=== PATIENT | male | born 1970 | race Caucasian/White ===

== ENCOUNTER 2023-10-09 10:28 | Emergency (ER) | payer OTHER, SELFPAY ==
[2023-10-09] VITALS (18 sets, daily range): BP systolic 123–139; BP diastolic 80–91; PULSE 31–110; RESP 18; TEMP 36.4; O2SAT 93–100; BMI 31.0
--- NOTE | 2023-10-09 10:55 | XR_ITS ---
Patient: DELIO CHAIREZ Facility:?[facility] Patient ID:?[id number] Site Patient ID:?[id number]. Site :?05/16/1940 Study:?XRay-Chest 2 VIEW-10/09/2023 11:27:30 AM Ordering Physician:?DR. ORTEGA Final Report: INDICATION: : Chest pain TECHNIQUE: PA and lateral 2 view chest COMPARISON: None FINDINGS: Lung volumes are good. No focal or diffuse opacities. No pleural effusion. No pneumothorax. Heart size is normal. IMPRESSION: Normal chest radiographs. Dictated by Alcira Chris MD @ 10/09/2023 11:40:00 AM Signed by:?Alcira Chris MD @10/09/2023 11:40:00 AM (Electronic Signature)
--- NOTE | 2023-10-09 10:58 | ED.CHESTPAIN ---
HPI - Chest Pain General Date Seen: 10/09/23 Chief Complaint: Chest Pain Stated Complaint: Chest pain in middle of night Time Seen by Provider: 10/09/23 10:42 Source: patient Mode of arrival: ambulatory Limitations: no limitations History of Present Illness HPI narrative: Patient is a 53-year-old male with a history of a heart ablation for AFib presenting to the emergency department for 5-8 minutes of chest pain that occurred last night pressure sensation in his chest that radiated to both arms that resolved on its own. Will come up from his sleep. States he had chest pain beforeLast year prior to his ablation but it was never this bad. States he has had previous echo in believes he had a cardiac CT done of his heart prior to the ablation but does not remember a heart catheterization being done. Is not on any medications currently. States his heart rate is usually between 45 and 60. Is not currently having any symptoms. Denies fevers, chills, shortness of breath, weakness, numbness, abdominal pain, diarrhea, constipation, lightheadedness, dizziness. Currently he is asymptomatic Related Data Home Medications Medication Instructions Recorded Confirmed aspirin 81 mg tablet,delayed 81 mg PO DAILY 10/09/23 10/09/23 release (Adult Aspirin Regimen) cholecalciferol (vitamin D3) 50 10/09/23 mcg (2,000 unit) capsule Allergies Allergy/AdvReac Type Severity Reaction Status Date / Time No Known Drug Allergies Allergy Verified 10/09/23 10:45 Review of Systems Status of ROS Reports: 10 or more systems reviewed and unremarkable except as noted in History and below PFS PFS Social History Smoking Status: Never smoker Do you use any of these nicotine containing products: None How often do you have a drink containing alcohol: never How often do you have six or more drinks on one occasion: Never AUDIT-C Alcohol total score: 0 Non-prescribed substance use: denies use Exam Narrative Exam Narrative: Const: Well-nourished, Well-developed, in No distress Eyes: PERRL, no conjunctival injection, and symmetrical lids HENT: Atraumatic external nose and ears. Moist mucous membranes. Neck: Symmetric, trachea midline, No thyromegaly. CVS: RRR, No murmurs or gallops. Peripheral pulses 2+ and equal in all extremities RESP: Unlabored respiratory effort. Clear to auscultation bilaterally. GI: Nontender/Nondistended, No rebound or guarding. MSK:Extremities w/o deformity, Normal Active ROM Skin: Warm, Dry. No rashes or lesions. Neuro: Normal Muscle tone, No focal neurological deficits. Psych: Awake, Alert, & Oriented x3. Appropriate mood and affect. Const Vital Signs, click to edit/add: Vital Signs - 24 hr 10/09/23 10:39 10/09/23 11:15 10/09/23 11:30 Temperature Pulse Rate 40 L 46 L Pulse Rate [Right Pulse Oximeter] 50 L Respiratory Rate 18 Blood Pressure Blood Pressure [Left Upper Arm] 131/91 H Pulse Oximetry 96 93 96 Oxygen Delivery Method Room Air 10/09/23 11:31 10/09/23 11:32 10/09/23 11:45 Temperature Pulse Rate 47 L 47 L 46 L Pulse Rate [Right Pulse Oximeter] Respiratory Rate Blood Pressure 123/81 Blood Pressure [Left Upper Arm] Pulse Oximetry 98 98 96 Oxygen Delivery Method 10/09/23 12:01 10/09/23 12:02 10/09/23 12:15 Temperature Pulse Rate 33 L 39 L 31 L Pulse Rate [Right Pulse Oximeter] Respiratory Rate Blood Pressure 133/80 Blood Pressure [Left Upper Arm] Pulse Oximetry 98 99 98 Oxygen Delivery Method 10/09/23 12:30 10/09/23 12:31 10/09/23 12:32 Temperature Pulse Rate 46 L 46 L 47 L Pulse Rate [Right Pulse Oximeter] Respiratory Rate Blood Pressure 139/83 Blood Pressure [Left Upper Arm] Pulse Oximetry 97 98 98 Oxygen Delivery Method 10/09/23 12:46 10/09/23 13:00 10/09/23 13:01 Temperature Pulse Rate 46 L 47 L 47 L Pulse Rate [Right Pulse Oximeter] Respiratory Rate Blood Pressure 129/86 Blood Pressure [Left Upper Arm] Pulse Oximetry 97 97 97 Oxygen Delivery Method 10/09/23 13:02 10/09/23 13:15 10/09/23 13:15 Temperature 97.5 F L Pulse Rate 110 H 54 L Pulse Rate [Right Pulse Oximeter] Respiratory Rate Blood Pressure Blood Pressure [Left Upper Arm] Pulse Oximetry 97 100 Oxygen Delivery Method 10/09/23 13:30 Temperature Pulse Rate 35 L Pulse Rate [Right Pulse Oximeter] Respiratory Rate Blood Pressure Blood Pressure [Left Upper Arm] Pulse Oximetry 99 Oxygen Delivery Method Course Vital Signs Vital signs: Initial Vital Signs Pulse Rate 50 L 10/09/23 10:39 Pulse Rhythm Regular 10/09/23 10:39 Respiratory Rate 18 10/09/23 10:39 Blood Pressure 131/91 H 10/09/23 10:39 Blood Pressure Mean 104 10/09/23 10:39 Blood Pressure Position Sitting 10/09/23 10:39 Pulse Oximetry 96 10/09/23 10:39 Oxygen Delivery Method Room Air 10/09/23 10:39 Vital Signs Pulse Rate 50 L 10/09/23 10:39 Respiratory Rate 18 10/09/23 10:39 Blood Pressure 131/91 H 10/09/23 10:39 Pulse Oximetry 96 10/09/23 10:39 Oxygen Delivery Method Room Air 10/09/23 10:39 Temperature 97.5 F L 10/09/23 13:15 Pulse Rate 35 L 10/09/23 13:30 Respiratory Rate 18 10/09/23 10:39 Blood Pressure 129/86 10/09/23 13:01 Pulse Oximetry 99 10/09/23 13:30 Oxygen Delivery Method Room Air 10/09/23 10:39 MDM - Chest Pain MDM Narrative Medical decision making narrative: Patient is a 53-year-old male presenting to the emergency department for an episode of chest pain. This occurred last night and has since fully resolved. He has been asymptomatic since then. Ordered EKG, magnesium, BMP, CBC, chest x-ray. PE seems very unlikely at this time as symptoms have fully resolved and his symptoms were midsternal chest pain. Also says cm likely be a pneumonia or pneumothorax but chest x-ray order to review this. Lab work returned showing no concerning abnormalities. EKG and repeat troponin showed no concerning findings. Chest x-ray reviewed myself with the radiologist showed no concerning findings. While he was in the emergency department his heart rate will occasionally drop down in the 30s but he is completely asymptomatic at this time. And it would bounce back up into the 40s And 50s. Considering he was otherwise asymptomatic and would quickly rebound to a normal heart rate for him I do not believe further intervention is necessary at this time. Of the heart monitor he was wearing did have really notes when his heart rate was in the 30s and no signs of a heart block were seen. I did inform him to have close follow-up with his [employer] about the heart rate. His heart score at this time is 2. He will be discharged at this time. Lab Data Labs: Lab Results 10/09/23 10/09/23 10/09/23 Range/Units 11:02 11:08 13:03 WBC 7.09 (4.50-11.00) K/uL RBC 4.98 (4.30-5.90) m/uL Hgb 16.3 (13.5-17.5) gm/dL Hct 47.7 (37.0-53.0) % MCV 96 (80-100) fL MCH 33 (26-34) pg MCHC 34 (32-36) gm/dL RDW Coeff of Cosme 12.2 (11.5-15.5) % Plt Count 213 (140-440) K/uL Neut % (Auto) 62.4 (42.0-72.0) % Lymph % (Auto) 24.4 (20-44) % Edwards % (Auto) 9.9 (0.0-11.0) % Eos % (Auto) 2.7 (0.0-7.0) % Baso % (Auto) 0.6 (0.0-3.0) % Neut # (Auto) 4.43 (1.7-7.0) K/uL Lymph # (Auto) 1.73 (0.90-2.90) K/uL Edwards # (Auto) 0.70 (0.00-0.90) K/UL Eos # (Auto) 0.19 (0.00-0.50) K/uL Baso # (Auto) 0.04 (0.00-0.30) K/uL Abs Immat Gran (auto) 0.00 (0.00-0.30) K/uL Imm/Tot Granulo (auto) 0.0 % Sodium 138 (135-149) mmol/L Potassium 4.2 (3.6-5.1) mmol/L Chloride 107 (96-114) mmol/L Carbon Dioxide 23 (20-32) mmol/L Anion Gap 8 (7-15) mEq/L BUN 15 (7-30) mg/dL Creatinine 1.0 (0.5-1.5) mg/dL Estimated Creat Clear 86.41 Estimated GFR 91 ml/min Glucose 92 (60-115) mg/dL Calcium 9.0 (8.4-10.6) mg/dL Magnesium 2.1 (1.5-2.6) mg/dL Troponin I < 0.01 L (0.01-0.04) ng/mL POC Troponin I 0.01 0.00 L (0.01-0.04) ng/ml Imaging Data Chest x-ray: Attestation: I have reviewed the pertinent imaging results. Radiologist's impression: Normal chest radiographs. Dictated by Alcira Chris MD @ 10/09/2023 11:40:00 AM ECG Data Attestation: I personally reviewed and interpreted this ECG as follows: Prior ECG tracings: not available for review Interpretation: Sinus bradycardia with a rate of 52 beats per minute, PVCs seen, normal intervals, normal axis, no ST or T-wave abnormalities. Discharge Plan Discharge Clinical Impression: Bradycardia Chest pain Qualifiers: Chest pain type: unspecified Qualified Code(s): R07.9 - Chest pain, unspecified Patient Disposition: Home, Self-Care Condition: Stable Instructions: Bradycardia (ED), Noncardiac Chest Pain (ED) Additional Instructions: I would call your [employer] office as soon as possible set up follow-up appointment. Informed that you had chest pain last night and then in the emergency department your heart rate will go down into the 30s but you were asymptomatic when this occurred. The heart rate were quickly go back up to the 40s to 50s. If You develops lightheadedness, dizziness, weakness, repeat chest pain or any other new or concerning symptoms return to the emergency department for repeat evaluation. Prescriptions: No Action cholecalciferol (vitamin D3) 50 mcg (2,000 unit) capsule Patient Comments: TAKE 2 CAPSULES BY MOUTH DAILY aspirin [Adult Aspirin Regimen] 81 mg tablet,delayed release (DR/EC) 81 mg PO DAILY Follow Up/Referrals: Provider,Not a Local [Primary Care Provider] - Stand Alone [facility] Inst[facility]
[2023-10-09 11:10] LABS: Basophils Absolute Auto 0.04 K/uL (0.00-0.30); Basophils Percent Auto 0.6 % (0.0-3.0); Eosinophils Absolute Auto 0.19 K/uL (0.00-0.50); Eosinophils Percent Auto 2.7 % (0.0-7.0); Hematocrit 47.7 % (37.0-53.0); Hemoglobin* 16.3 gm/dL (13.5-17.5); Lymphocytes Absolute Auto 1.73 K/uL (0.90-2.90); Lymphocytes Percent Auto 24.4 % (20-44); Mean Corpuscular HGB Conc 34 gm/dL (32-36); Mean Corpuscular Hemoglobin 33 pg (26-34); Mean Corpuscular Volume 96 fL (80-100); Monocytes Percent Auto 9.9 % (0.0-11.0); Neutrophils Absolute Auto 4.43 K/uL (1.7-7.0); Neutrophils Percent Auto 62.4 % (42.0-72.0); Platelet Count* 213 K/uL (140-440); RDW Coefficient of Variation % 12.2 % (11.5-15.5); Red Blood Count 4.98 m/uL (4.30-5.90); White Blood Count* 7.09 K/uL (4.50-11.00)
[2023-10-09 11:13] LABS: Slide Review Reflex No
[2023-10-09 11:18] LABS: Troponin, Point-of-Care* 0.01 ng/ml (0.01-0.04)
[2023-10-09 11:23] LABS: Chloride* 107 mmol/L (96-114); Potassium* 4.2 mmol/L (3.6-5.1); Sodium* 138 mmol/L (135-149)
[2023-10-09 11:26] LABS: Anion Gap 8 mEq/L (7-15); Blood Urea Nitrogen* 15 mg/dL (7-30); Carbon Dioxide* 23 mmol/L (20-32); Est. Creatinine Clearance* 86.41; Estimated Glomerular Filt Rate 91 ml/min
[2023-10-09 11:27] LABS: Glucose* 92 mg/dL (60-115); Magnesium* 2.1 mg/dL (1.5-2.6)
[2023-10-09 11:41] LABS: Troponin I* < 0.01 ng/mL (0.01-0.04)
== END 2023-10-09 13:57 | disposition home or self-care (01) ==
PROVIDERS: Emergency Provider Student in an Organized Health Care Education/Training Program
DX: R07.9 Chest pain, unspecified (principal)
CPT/HCPCS: 36415; 71046; 80048; 83735; 84484; 85025; 93005; 99283; 99284